=== PATIENT | female | born 1995 | race Caucasian/White ===

== ENCOUNTER 2017-06-01 00:13 | Inpatient (IN) ==
[2017-06-01 00:43] LABS: URINE SOURCE VOIDED
[2017-06-01 00:49] LABS: UR AMPHETAMINES QUAL NONE DETECTED (NONE DETECT); UR BARBITUATES QUAL NONE DETECTED (NONE DETECT); UR BENZODIAZEPIN QUAL NONE DETECTED (NONE DETECT); UR CANNABINOIDS QUAL NONE DETECTED (NONE DETECT); UR COCAINE QUAL NONE DETECTED (NONE DETECT); UR MDMA QUAL NONE DETECTED (NONE DETECT); UR METHADONE QUAL NONE DETECTED (NONE DETECT); UR METHAMPHETAMINE QUAL NONE DETECTED (NONE DETECT); UR OPIATES QUAL NONE DETECTED (NONE DETECT); UR OXYCODONE QUAL NONE DETECTED (NONE DETECT); UR PCP QUAL NONE DETECTED (NONE DETECT); UR TCA QUAL NONE DETECTED (NONE DETECT)
[2017-06-01 00:51] LABS: BILIRUBIN URINE NEGATIVE (NEGATIVE); BLOOD URINE 2+ (NEGATIVE); CLARITY SL. CLOUDY (CLEAR); COLOR YELLOW; GLUCOSE URINE NEGATIVE (NEGATIVE); LEUKOCYTES URINE 1+ (NEGATIVE); NITRITE URINE POSITIVE (NEGATIVE); PH URINE 6.5; PROTEIN URINE TRACE mg/dL (NEGATIVE); UROBILINOGEN URINE NORMAL
[2017-06-01] MEDS ORDERED: LR 1,000 ML IV SCH ×3 (00:59→01:45)
[2017-06-01] MEDS ORDERED: KEFZOL 2 GM/D5W 2 GM/50 ML IVPB IV ONE (00:59)
[2017-06-01 01:30] LABS: MANUAL DIFF NEEDED? NO
[2017-06-01 01:32] LABS: BASO% 0.1 % (0.0-0.8); EOS# 0.04 X1000 (0.0-0.7); EOS% 0.3 % (0.0-10.0); HEMATOCRIT 31.1 % (37.0-47.0); HEMOGLOBIN 10.7 g/dL (12.0-16.0); IMM GRAN# 0.04 X1000 (0.0-0.04); IMM GRAN% 0.3 % (0.0-0.5); LYMPH# 1.03 X1000 (1.2-3.4); LYMPH% 7.7 % (20.5-51.1); MCH 31.8 PG (27-31); MCHC 34.4 g/dL (33-37); MCV 92.3 FL (81-99); MONO# 0.94 X1000 (0.11-0.59); MPV 10.9 FL (7.4-10.4); NEUT% 84.6 % (42.2-75.2); PLT 202 X1000 (130-400); RBC 3.37 XMIL (4.2-5.4)
[2017-06-01] MEDS ORDERED: GENTAMICIN 100 MG/NS 100 MG/100 ML IVPB IV ONE (01:33)
[2017-06-01] MEDS ORDERED: CLINDAMYCIN 600 MG/NS 600 MG/50 ML IVPB IV ONE (01:33)
[2017-06-01] MEDS ORDERED: LR 500 ML IV ONE (01:36)
[2017-06-01] MEDS ORDERED: REGLAN PO ONE (01:36)
[2017-06-01] MEDS ORDERED: PEPCID PO ONE (01:36)
[2017-06-01] MEDS ORDERED: BICITRA PO ONE (01:45)
[2017-06-01] MEDS ORDERED: SODIUM CHLORIDE 0.9% INJ ONE (01:45)
[2017-06-01] MEDS ORDERED: PEPCID IV ONE (01:45)
[2017-06-01] MEDS ORDERED: DURAMORPH ONE (01:58)
[2017-06-01] MEDS ORDERED: FENTANYL ONE (01:59)
[2017-06-01] MEDS ORDERED: VERSED ONE (01:59)
[2017-06-01] MEDS ORDERED: PITOCIN ONE (02:00)
[2017-06-01] MEDS ORDERED: TORADOL ONE (02:43)
[2017-06-01] MEDS ORDERED: MORPHINE IV PRN (03:46)
[2017-06-01] MEDS ORDERED: BENADRYL IV PRN (03:48)
[2017-06-01] MEDS ORDERED: ZOFRAN IV PRN ×2 (03:48)
[2017-06-01] MEDS ORDERED: ZOFRAN ODT PO PRN (03:48)
[2017-06-01] MEDS ORDERED: NARCAN INJ PRN (03:48)
[2017-06-01] MEDS ORDERED: DEMEROL IV ONE (04:00)
[2017-06-01] MEDS ORDERED: DULCOLAX PR PRN (04:20)
[2017-06-01] MEDS ORDERED: DEMEROL IM PRN (04:20)
[2017-06-01] MEDS ORDERED: DEMEROL PO PRN ×2 (04:20)
[2017-06-01] MEDS ORDERED: AMBIEN PO PRN (04:20)
[2017-06-01] MEDS ORDERED: PITOCIN 20 UNITS/LR 20 UNITS/1,000 ML IV.SOLN IV ONE (04:20)
[2017-06-01] MEDS ORDERED: M-M-R II VACCINE SUBQ ONE (04:20)
[2017-06-01] MEDS ORDERED: MYLICON PO PRN (04:20)
[2017-06-01] MEDS ORDERED: PERCOCET-5 PO PRN (04:20)
[2017-06-01] MEDS ORDERED: HYDROXYZINE IM PRN (04:20)
[2017-06-01] MEDS ORDERED: CYTOTEC PO PRN (04:20)
[2017-06-01] MEDS ORDERED: PITOCIN IM PRN (04:20)
[2017-06-01] MEDS ORDERED: HYDROXYZINE PO PRN (04:20)
[2017-06-01] MEDS ORDERED: BOOSTRIX VACCINE IM ONE (04:20)
[2017-06-01] MEDS ORDERED: PHENERGAN IM PRN (04:20)
[2017-06-01] MEDS ORDERED: NORCO-5 PO PRN (04:20)
[2017-06-01] MEDS: PITOCIN 10 UNITS/LR 10 UNIT/1,000 ML IV.SOLN IV SCH ×2 (04:42→14:37)
--- NOTE | 2017-06-01 07:36 | HISTORY AND PHYSICAL ---
DIAGNOSES: 1. A 34 week . 2. Prolonged rupture of membranes. 3. Myometritis. SUMMARY: The patient is a 22-year-old, 3, para 2-0-0-2, who is 34 weeks by an 11 week ultrasound that is documented. She has had no care. [facility], reporting contractions. Upon further questioning, she states that her water broke sometime Wednesday evening. There is tachycardia. Her abdomen is tender and suspicious of myometritis/chorioamnionitis. heart rate is tachycardic and there are decelerations present. On examination, she is 1 cm dilated and is vertex, prolonged rupture membranes, and signs of distress. We are proceeding with delivery. She has been given Ancef, gentamicin, and Cleocin. PAST MEDICAL HISTORY: Patient reports no chronic medical or surgical illnesses. She has had 2 previous vaginal deliveries. CURRENT MEDICATIONS: None. ALLERGIES: None. PHYSICAL EXAMINATION: GENERAL: Shows a gravid female. She is tachycardiac. She is afebrile. The white blood count is elevated at 13.37. CARDIOVASCULAR: Tachycardia. No murmurs, rubs, or gallops. PULMONARY: Clear. ABDOMEN: Tender. PELVIC: Cervix as above. EXTREMITIES: No clubbing, edema, or cyanosis. IMPRESSION: 1. Thirty-four week . 2. Prolonged rupture of membranes. 3. Chorioamnionitis. PLAN: Due to signs of distress, we will proceed with immediate delivery. The patient and her significant other understand the risks involved including prematurity and infection. They understand that there is a high probability of the infant being transferred to the intensive care unit. cc: Gato Bhagat MD
[2017-06-01] MEDS: MYLICON PO SCH ×4 (08:35→20:32)
[2017-06-01] MEDS: TORADOL IV SCH ×3 (08:35→20:32)
[2017-06-01] MEDS ORDERED: TORADOL IV SCH (09:00)
[2017-06-01] MEDS: GENTAMICIN 80 MG/NS 80 MG/50 ML IVPB IV SCH ×2 (10:07→17:53)
[2017-06-01] MEDS: CLINDAMYCIN 600 MG/NS 600 MG/50 ML IVPB IV SCH ×2 (11:12→20:33)
[2017-06-01] MEDS: NORCO-10 PO PRN ×2 (12:30→17:27)
--- NOTE | 2017-06-01 16:07 | OPERATIVE NOTE ---
PROCEDURE DATE: 06/01/2017 SURGEON: Gato Bhagat MD. ANESTHESIA: Spinal by Dr. Velasco. OPERATION PERFORMED: Primary low transverse . PREOPERATIVE DIAGNOSES: 1. Prolonged rupture of membranes. 2. distress. 3. No care. POSTOPERATIVE DIAGNOSES: 1. Prolonged rupture of membranes. 2. distress. 3. No care. FINDINGS: At 0233 a 4 pounds 4 ounce female was delivered in a vertex presentation by low- transverse . Apgars were 3 at 1 minute, 7 at 5 minutes and 9 at 10 minutes. SUMMARY: Patient is taken back to the operating room, where spinal anesthetic was placed and she was then placed in supine position with left lateral tilt. A Jaramillo catheter was in the urinary bladder. Once satisfactory conduction anesthesia was demonstrated, a Pfannenstiel incision was made. This incision was taken down to the fascia. The fascia was excised transversely. The underlying rectus muscles were bluntly and sharply dissected free. The rectus muscles in midline. Peritoneum was entered. Lower uterine segment was identified, a bladder flap was created. A low transverse incision was made across the myometrium. This incision was extended laterally using digital pressure. The 's head was delivered through this incision. The shoulders and body delivered without complications. Oropharynx was bulb suctioned. The cord was clamped and cut. The sent nurses further care and evaluation. Cord blood was obtained. Placenta was manually removed. The placenta was sent to pathology. Uterus brought through the abdominal wall and explored. All membrane fragments removed. The myometrium was then reapproximated using a running #1 chromic interlocking suture, followed by several [id number] chromic sutures for complete hemostasis across the suture line. The uterus was placed back in pelvic cavity. Uterine incisions were irrigated with copious amounts of sterile water. Complete hemostasis was noted. The 1st and 2nd sponge instrument and needle counts were reported as correct. The peritoneum was closed using a running chromic suture. The fascia was then closed using running Vicryl sutures x2. With final sponge, instrument, and needle count reported as correct. Adipose tissue was reapproximated using a 3-0 Vicryl suture. The skin edges were approximated using 3-0 Vicryl suture on a Abdirahman needle. BLOOD LOSS: Estimated at 400 mL. DISPOSITION: The patient went to the recovery room in stable condition. I will continue her on antibiotics. cc: Gato Bhagat MD
[2017-06-01] MEDS: PERICOLACE PO SCH (20:32)
[2017-06-02] MEDS: GENTAMICIN 80 MG/NS 80 MG/50 ML IVPB IV SCH ×3 (01:16→18:21)
[2017-06-02] MEDS: PERCOCET-10 PO PRN ×3 (03:00→14:06)
[2017-06-02] MEDS: CLINDAMYCIN 600 MG/NS 600 MG/50 ML IVPB IV SCH ×3 (03:00→19:42)
[2017-06-02] MEDS ORDERED: LR 1,000 ML IV SCH (03:22)
[2017-06-02 06:48] LABS: HEMATOCRIT 25.9 % (37.0-47.0); HEMOGLOBIN 8.4 g/dL (12.0-16.0); MCH 30.4 PG (27-31); MCHC 32.4 g/dL (33-37); MCV 93.8 FL (81-99); MPV 11.5 FL (7.4-10.4); RBC 2.76 XMIL (4.2-5.4)
[2017-06-02] MEDS: MYLICON PO SCH ×4 (08:51→19:42)
[2017-06-02] MEDS ORDERED: NS 500 ML IV SCH (10:14)
[2017-06-02 12:00] LABS: HIV ANTIBODY SCREEN SEE COMMENTS
[2017-06-02] MEDS: PERICOLACE PO SCH (19:42)
[2017-06-02] MEDS: NORCO-10 PO PRN (19:47)
[2017-06-02] MEDS: MOTRIN PO PRN (19:47)
[2017-06-03] MEDS: GENTAMICIN 80 MG/NS 80 MG/50 ML IVPB IV SCH ×2 (01:01→01:30)
[2017-06-03] MEDS: NORCO-10 PO PRN (01:01)
[2017-06-03] MEDS: MYLICON PO SCH (01:04)
[2017-06-03] MEDS: PERICOLACE PO SCH (02:25)
[2017-06-03] MEDS: CLINDAMYCIN 600 MG/NS 600 MG/50 ML IVPB IV SCH (02:26)
[2017-06-03] MEDS: PERCOCET-10 PO PRN ×2 (08:35→14:37)
--- NOTE | 2017-06-03 09:12 | DISCHARGE SUMMARY ---
ADMISSION DATE: 06/01/2017 DISCHARGE DATE: 06/03/2017 ADMISSION DIAGNOSES: 1. Intrauterine at Approximately 34 weeks No care. premature rupture of membranes. 2. Chorioamnionitis. 3. Nonreassuring heart rate tracing. DISCHARGE DIAGNOSES: 1. Intrauterine at Approximately 34 weeks No care. premature rupture of membranes. 2. Chorioamnionitis. 3. Nonreassuring heart rate tracing. PRINCIPAL PROCEDURE: Primary low transverse section per Dr. Gato Bhagat, in which a 4 pound 4 ounce female infant was delivered with Apgars at 3, 7 and 9 at one, five and ten minutes respectively. DISCHARGE DIET: Regular. DISCHARGE DISPOSITION: Home. DISCHARGE FOLLOW UP: One week. DISCHARGE MEDICATIONS: 1. Percocet 10. 2. Motrin 800 mg. Postoperative course uncomplicated. cc: MD Gato Dent MD
[2017-06-03 13:37] VITALS: BP 150/82
[2017-06-03] MEDS: MOTRIN PO PRN (14:37)
== END 2017-06-03 14:45 | disposition home or self-care (01) ==
LOC: OPLD 00:13 → P.LD 00:18 → P.WC 06:30
PROVIDERS: ADMIT Obstetrics & Gynecology; ATTEND Obstetrics & Gynecology